=== PATIENT | female | born 1960 | race Caucasian/White ===

== ENCOUNTER 2017-02-11 14:48 | Emergency (ER) | payer OTHER, MEDICARE ==
--- NOTE | 2017-02-11 15:21 | ED Physician Documentation ---
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 PCP told her to come to ER. History: history of chronic pain:, back pain Onset: days ago Duration: continues in ED Recent Injury: No Where: home Severity: moderate Quality: burning, sharp, similar- prior back pain Associated Symptoms: denies: fever, chills Worsened By:: nothing Relieved By: nothing Further Comments: no - ROS CONST: no problems CVS/RESP: none EYES/ENT: none MS/SKIN/LYMPH: none Neuro/Psych: none - PAST HX Past History: back pain Surgeries/Procedures: none Allergies/Adverse Reactions: Allergies Allergy/AdvReac Type Severity Reaction Status Date / Time erythromycin base Allergy Verified 07/02/14 17:41 [Erythromycin Base] latex Allergy Verified 07/02/14 17:41 Sulfa (Sulfonamide Allergy Verified 07/02/14 17:41 Antibiotics) - SOCIAL HX Smoking History: non-smoker Alcohol Use: none Drug Use: none - FAMILY HX Family History: none - VITAL SIGNS Vital Signs: Vital Signs Temp Pulse Resp BP Pulse Ox 109/62 05/18/15 23:58 - REVIEWED ASSESSMENTS Nursing Assessment Reviewed: Yes Vitals Reviewed: Yes Progress - Results/Orders Results/Orders: I explained that I could give her a shot now, but would not prescribe new pain medications or rasie/increase her existing pain meds. She states her pain dr is taking a month off from work and she doesn't know where else to go. Her PCP sent her here. Low Back Pain/Injury - Physical Exam General Appearance: alert, mild distress EENT: ENT inspection normal, no signs of dehydration Neck: non-tender Resp/CVS: no resp. distress Abdomen: non-tender Back: vertebral point-tendernes, other (can't eval/examine. she is in reclining wheel dom and is obese, can't attempt to move her.) Neuro/Psych: oriented x3 Skin: normal color Extremities: non-tender Discharge Clincal Impression: Chronic low back pain Qualifiers: Back pain laterality: unspecified Sciatica presence: unspecified whether sciatica present Qualified Code(s): M54.5 - Low back pain; G89.29 - Other chronic pain Referrals: Ashlee Garrido MD [Primary Care Provider] - 2 Days Condition: Stable Disposition: 01 HOME, SELF-CARE Decision to Admit: NO Date of Decison to Admit: 02/11/17 Decision Time: 15:21
[2017-02-11] MEDS ORDERED: HYDROmorphone HCL/PF 2 MG/ML DISP.SYRIN IM ONE (15:22)
[2017-02-11 16:18] VITALS: BP 104/52
== END 2017-02-11 16:17 | disposition home or self-care (01) ==
LOC: ED 14:48
DX: M54.5 Low back pain (principal); G89.29 Other chronic pain
CPT/HCPCS: 96372; 99283; J1170

== ENCOUNTER 2017-03-06 08:02 | Outpatient (CLI) | payer OTHER, MEDICARE ==
[2017-03-06 09:15] LABS: eGFR (African) > 60; eGFR (Non-African) > 60
== END 2017-03-06 08:03 ==
LOC: LAB 08:02
PROVIDERS: ATTEND Family Medicine
DX: E11.9 Type 2 diabetes mellitus without complications (principal); E03.9 Hypothyroidism, unspecified
CPT/HCPCS: 36415; 80053; 80061; 83036; 84443

== ENCOUNTER 2017-04-22 19:26 | Emergency (ER) | payer OTHER, MEDICARE ==
[2017-04-22 20:01] LABS: BASOPHILS % 0.9 (0.0-1.5); EOSINOPHILS % 1.3 % (0.0-6.8); MEAN CORPUSCULAR HEMOGLOBIN 28.9 pg (28.0-34.0); MEAN CORPUSCULAR VOLUME 91.1 fl (80.0-100.0); MONOCYTES % 6.1 % (0.0-11.0); NEUTROPHILS # 3.6 # k/uL (1.4-7.7)
[2017-04-22 20:15] LABS: eGFR (African) > 60; eGFR (Non-African) > 60
[2017-04-22] MEDS ORDERED: ONDANSETRON HCL/PF 4 MG/ 2ML VIAL IVP ONE (20:44)
[2017-04-22] MEDS ORDERED: 0.9 % SODIUM CHLORIDE 1,000 ML IV ONE ×2 (21:00→21:03)
[2017-04-22] MEDS ORDERED: POTASSIUM CHLORIDE 20 MEQ TABLET.ER ONE ×2 (21:03→21:07)
--- NOTE | 2017-04-22 21:18 | ED Physician Documentation ---
General Adult - HISTORIAN Historian: patient - HPI Stated Complaint: N/V/D. left chest pain Chief Complaint: General Adult Onset: days ago (3) Further Comments: yes (56 year old female patient presents with complaints of nause, vomiting x 3 days after eating at [employer] Saturday night. Also reports left anterior chest wall discomfort 1 hour prior to arrival. Denies SOB, diaphoresis, or radiation of pain.) - ROS CONST: weakness. denies: fever, sweating, weight loss, chills EYES/ENT: none CVS/RESP: chest pain. denies: shortness of breath, cough GI/: vomiting, nausea, diarrhea. denies: abdominal pain, problems urinating, black stools MS/SKIN/LYMPH: neck pain (chronic), back pain (chronic). denies: calf pain, joint pain, leg swelling, swollen glands, leg pain, ankle swelling NEURO/PSYCH: denies: headache, fainting, dizziness, tingling, numbness, difficulty walking, difficulty with speech, anxiety, depression, other - PAST HX Past History: other (supra pubic catheter, hypothyroidism, chondrosarcoma of cspine) Other History: diabetes Type 2 Allergies/Adverse Reactions: Allergies Allergy/AdvReac Type Severity Reaction Status Date / Time erythromycin base Allergy Verified 07/02/14 17:41 [Erythromycin Base] latex Allergy Verified 07/02/14 17:41 Sulfa (Sulfonamide Allergy Verified 07/02/14 17:41 Antibiotics) Home Medications: Ambulatory Orders Medication Instructions Recorded Hydromorphone HCl [Dilaudid] 4 mg PO Q8 02/11/17 Tramadol HCl [Ultram] 50 mg PO PRN PRN 02/11/17 - SOCIAL HX Smoking History: non-smoker - FAMILY HX Family History: No - VITAL SIGNS Vital Signs: Vital Signs Temp Pulse Resp BP Pulse Ox 98.2 F 81 18 143/75 99 04/22/17 19:26 04/22/17 21:00 04/22/17 19:26 04/22/17 19:26 04/22/17 21:00 - REVIEWED ASSESSMENTS Nursing Assessment Reviewed: Yes Vitals Reviewed: Yes Progress - EKG/XRAY/CT EKG: rhythm (SR, artifact, rate 75, no acute changes) ED Results Lab/Radiology - Lab Results Lab Results: Lab Results 04/22/17 04/22/1704/22/17 19:57 19:57 19:57 WBC 5.40 K/ul K/ul (4.00-12.00) RBC 4.49 M/ul M/ul (3.90-5.20) Hgb 13.0 g/dL g/dL (12.0-16.0) Hct 40.9 % % (34.5-46.5) MCV 91.1 fl fl (80.0-100.0) MCH 28.9 pg pg (28.0-34.0) MCHC 31.7 g/dL g/dL (30.0-36.0) RDW 13.2 % % (11.3-14.3) Plt Count 203 K/mm3 K/mm3 (130-400) Neut % (Auto) 67.0 % % (39.0-79.0) Lymph % (Auto) 23.1 % % (16.0-50.0) [place] % (Auto) 6.1 % % (0.0-11.0) Eos % (Auto) 1.3 % % (0.0-6.8) Baso % (Auto) 0.9 (0.0-1.5) Neut # (Auto) 3.6 # k/uL # k/uL (1.4-7.7) Lymph # (Auto) 1.2 # k/uL # k/uL (0.6-4.0) [place] # (Auto) 0.3 # k/uL # k/uL (0.0-0.9) Eos # (Auto) 0.1 # k/uL # k/uL (0.0-0.6) Baso # (Auto) 0.0 # k/uL # k/uL (0.0-0.5) Reactive Lymphs % 1.6 % % (0.0-5.0) Reactive Lymphs # 0.1 # k/uL # k/uL (0.0-0.8) Sodium 141 mmol/L mmol/L (136-145) Potassium 3.3 mmol/L L mmol/L (3.5-5.0) Chloride 103 mmol/L mmol/L (98-110) Carbon Dioxide 34 mmol/L H mmol/L (20-32) BUN 9 mg/dL L mg/dL (10-26) Creatinine 0.8 mg/dL mg/dL (0.4-1.5) Est GFR ( Amer) > 60 (60 - ) Est GFR (Non-Af Amer) > 60 (60 - ) Glucose 167 mg/dL H mg/dL (70-99) Calcium 9.8 mg/dL mg/dL (8.5-10.5) Total Bilirubin 1.0 mg/dL mg/dL (0.2-1.2) AST 29 U/L U/L (0-41) ALT 53 U/L H U/L (0-45) Alkaline Phosphatase 99 U/L U/L (46-116) Troponin I < 0.03 ng/mL L ng/mL (0.03-0.06) Total Protein 7.9 g/dL g/dL (6.0-8.5) Albumin 4.8 g/dL g/dL (3.0-5.5) - Orders Orders: ED Orders Category Date Time Status Continuous EKG monitoring Q30M Care 04/22/17 19:39 Active Continuous Pulse Oximetry Q30M Care 04/22/17 19:39 Active CBC/PLATELET/DIFF Stat Lab 04/22/17 19:57 Completed CMP Stat Lab 04/22/17 19:57 Completed TROPONIN I (cTnI) Stat Lab 04/22/17 19:57 Completed UA W/MICRO IF INDICATED Stat Lab 04/22/17 19:39 Ordered 0.9 % Sodium Chloride [Normal Saline] 1,000 ml Med 04/22/17 21:03 Discontinued IV .STK-MED Ondansetron HCl/Pf [Zofran 4 mg/2 ml] Med 04/22/17 20:44 Discontinued 4 mg IVP NOW ONE Potassium Chloride [Klor-Con M20] Med 04/22/17 21:07 Discontinued 20 meq .ROUTE .STK-MED ONE Potassium Chloride [Klor-Con M20] Med 04/22/17 21:03 Discontinued 40 meq .ROUTE .STK-MED ONE EKG WITH COMPARISON Stat Ther 04/22/17 19:39 Ordered General Adult Physical Exam - PHYSICAL EXAM GENERAL APPEARANCE: mild distress EENT: eye inspection normal, YFN RESPIRATORY: no resp distress, chest non-tender, breath sounds normal CVS: reg rate & rhythm, heart sounds normal, equal pulses, no murmur, no gallop , PMI nml, no JVD, no friction rub, 24 ABDOMEN: soft, no organomegaly, normal bowel sounds, no abdominal bruit, no distension, other (supra pubic catheter) SKIN: normal color, warm/dry, NR, INT, PAL, DR EXTREMITIES: non-tender, normal range of motion, no evidence of injury, no edema , J, 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 NEURO: oriented X3, CN's nml as tested, motor nml, sensation nml, mood/affect nml Discharge Clincal Impression: Presence of suprapubic catheter UTI (urinary tract infection) Qualifiers: Urinary tract infection type: catheter-associated UTI Indwelling urinary catheter type: unspecified Encounter type: initial encounter Qualified Code(s): T83.511A - Infection and inflammatory reaction due to indwelling urethral catheter, initial encounter; N39.0 - Urinary tract infection, site not specified Referrals: Ashlee Garrido MD [Primary Care Provider] - 2 Days Additional Instructions: 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 Drink at least 64 oz of water daily. Avoid caffeinated beverages You may want to try Azo over the counter for urinary pain. Follow package directions Cranberry juice will help with symptoms. Tylenol every 4 hours as needed for pain/fever or ibuprofen every 6 hours as needed for pain and fever See your primary care provider for a repeat UA 48 hours after completing your antibiotic. Home Medications: Ambulatory Orders Hydromorphone HCl [Dilaudid] 4 mg PO Q8 02/11/17 Tramadol HCl [Ultram] 50 mg PO PRN PRN 02/11/17 Condition: Stable Disposition: 01 HOME, SELF-CARE Decision to Admit: NO Decision Time: 22:55
[2017-04-22] MEDS ORDERED: POTASSIUM CHLORIDE 20 MEQ TABLET.ER PO ONE (21:32)
[2017-04-22] MEDS ORDERED: cefTRIAXone SODIUM 1 GM in 0.9 % SODIUM CHLORIDE 50 ML IV ONE (22:40)
[2017-04-22 23:55] VITALS: BP 127/69
[2017-04-23 05:42] LABS: APPEARANCE,URINE CLOUDY (CLEAR); COLOR,URINE AMBER (YELLOW); OCCULT BLOOD,URINE 3+ (NEGATIVE); UROBILINOGEN URINE 0.2 Eu (0.2-1.0)
== END 2017-04-22 23:30 | disposition home or self-care (01) ==
LOC: ED 19:26
DX: N39.0 Urinary tract infection, site not specified (principal); T83.511A Infection and inflammatory reaction due to indwelling urethral catheter, initial encounter; X58.XXXA Exposure to other specified factors, initial encounter; Y93.9 Activity, unspecified; Y99.9 Unspecified external cause status
CPT/HCPCS: 80053; 81002; 84484; 85025; 87086; 93005; A9270; J0696; J2405; J7030; 87186; 96361; 96374; 96375; 99283; S1016

== ENCOUNTER 2017-04-26 09:02 | Emergency (ER) | payer OTHER, MEDICARE ==
[2017-04-26] MEDS ORDERED: NORMAL SALINE 500 ML IV.SOLN IV ONE ×2 (09:20→10:15)
[2017-04-26] MEDS ORDERED: cefTRIAXone SODIUM ADVANTAGE 1 GM in NORMAL SALINE ADD-VANTAGE 50 ML IV ONE (09:21)
[2017-04-26] MEDS ORDERED: ONDANSETRON HCL/PF 4 MG/ 2ML VIAL IVP ONE ×2 (09:26→12:15)
[2017-04-26] MEDS ORDERED: cefTRIAXone SODIUM 1 GM VIAL ONE (09:27)
[2017-04-26] MEDS ORDERED: 0.9 % SODIUM CHLORIDE 1,000 ML IV ONE (09:28)
[2017-04-26] MEDS ORDERED: 0.9 % SODIUM CHLORIDE 50 ML IV ONE (09:28)
--- NOTE | 2017-04-26 09:34 | ED Physician Documentation ---
General Adult - HISTORIAN Historian: patient - HPI Stated Complaint: Nausea & vomiting x 1 week Chief Complaint: General Adult Additional Information: Nausea and vomiting began a week ago. Seen here 04/22 and started Cipro for UTI, given Iv fluids. Has continued to have nausea and vomiting. Has only retained one dose Cipro. Indwelling Junior last changed 3 weeks ago and will be changed again in a week. Less than 100 cc urine in bag since yesterday. Low grade fevers. 99.2 in ER today. FSG 174. - ROS CONST: fever - PAST HX Past History: other (wheel chair bound, para, c spine cancer to have surgery) Allergies/Adverse Reactions: Allergies Allergy/AdvReac Type Severity Reaction Status Date / Time erythromycin base Allergy Verified 04/26/17 09:24 [Erythromycin Base] latex Allergy Verified 04/26/17 09:24 Sulfa (Sulfonamide Allergy Verified 04/26/17 09:24 Antibiotics) Home Medications: Ambulatory Orders Medication Instructions Recorded Hydromorphone HCl [Dilaudid] 4 mg PO Q8 02/11/17 Tramadol HCl [Ultram] 50 mg PO PRN PRN 02/11/17 Ciprofloxacin HCl [Cipro] 500 mg PO BID #20 tablet 04/22/17 Ondansetron HCl Rapdis [Zofran Odt] 4 mg PO Q6 PRN #30 tab 04/22/17 - SOCIAL HX Smoking History: non-smoker - FAMILY HX Family History: No - VITAL SIGNS Vital Signs: Vital Signs Temp Pulse Resp BP Pulse Ox 99.1 F 86 16 131/78 97 04/26/17 09:04 04/26/17 09:04 04/26/17 09:04 04/26/17 09:04 04/26/17 09:04 - REVIEWED ASSESSMENTS Nursing Assessment Reviewed: Yes Vitals Reviewed: Yes Progress - Progress Progress: 1216, megan rafter 2.5L NS (will finish 3rd liter). Resume Cipro. Home with zofran script. ED Results Lab/Radiology - Orders Orders: ED Orders Category Date Time Status CBC/PLATELET/DIFF Routine Lab 04/26/17 Ordered CMP Routine Lab 04/26/17 Ordered URINALYSIS Routine Lab 04/26/17 Ordered 0.9 % Sodium Chloride [Normal Saline] Med 04/26/17 09:20 Once 1,000 ml IV NOW ONE Ondansetron HCl/Pf [Zofran 4 mg/2 ml] Med 04/26/17 09:26 Once 4 mg IVP NOW ONE cefTRIAXone SODIUM ADVANTAGE [Rocephin Advantage] 1 gm Med 04/26/17 09:21 Ordered Normal Saline Add-[place] [Sodium Chloride] 50 ml IV NOW General Adult Physical Exam - PHYSICAL EXAM GENERAL APPEARANCE: moderate distress (subjectively cold, appears tired, ill) EENT: eye inspection normal, ENT inspection normal NECK: normal inspection RESPIRATORY: no resp distress, breath sounds normal CVS: reg rate & rhythm, heart sounds normal ABDOMEN: soft, normal bowel sounds RECTAL: deferred SKIN: warm/dry, pallor (slight) EXTREMITIES: no evidence of injury NEURO: cognition normal Discharge Clincal Impression: Dehydration Nausea and vomiting Qualifiers: Vomiting type: unspecified Vomiting Intractability: non-intractable Qualified Code(s): R11.2 - Nausea with vomiting, unspecified UTI (urinary tract infection) Qualifiers: Urinary tract infection type: acute cystitis Hematuria presence: with hematuria Qualified Code(s): N30.01 - Acute cystitis with hematuria Referrals: Ashlee Garrido MD [Primary Care Provider] - 2 Days Additional Instructions: Resume the ciprofloxacin. Follow up with your provider as needed. Home Medications: Ambulatory Orders Hydromorphone HCl [Dilaudid] 4 mg PO Q8 02/11/17 Tramadol HCl [Ultram] 50 mg PO PRN PRN 02/11/17 Ciprofloxacin HCl [Cipro] 500 mg PO BID #20 tablet 04/22/17 Ondansetron HCl Rapdis [Zofran Odt] 4 mg PO Q6 PRN #30 tab 04/22/17 Condition: Fair Disposition: 01 HOME, SELF-CARE Decision to Admit: NO Decision Time: 12:17
[2017-04-26] MEDS: 0.9 % SODIUM CHLORIDE 1,000 ML IV ONE ×3 (09:38→11:48)
[2017-04-26 09:45] LABS: BASOPHILS % 0.5 (0.0-1.5); EOSINOPHILS % 1.6 % (0.0-6.8); MEAN CORPUSCULAR HEMOGLOBIN 31.1 pg (28.0-34.0); MEAN CORPUSCULAR VOLUME 90.7 fl (80.0-100.0); MONOCYTES % 4.6 % (0.0-11.0); NEUTROPHILS # 2.9 # k/uL (1.4-7.7)
[2017-04-26 10:05] LABS: eGFR (African) > 60; eGFR (Non-African) > 60
[2017-04-26 11:09] LABS: APPEARANCE,URINE CLOUDY (CLEAR); COLOR,URINE YELLOW (YELLOW); OCCULT BLOOD,URINE 3+ (NEGATIVE); UROBILINOGEN URINE 0.2 Eu (0.2-1.0)
[2017-04-26 13:24] VITALS: BP 140/72
== END 2017-04-26 13:22 | disposition home or self-care (01) ==
LOC: ED 09:02
DX: E86.0 Dehydration (principal); R11.2 Nausea with vomiting, unspecified
CPT/HCPCS: 80053; 81002; 85025; 87086; J0696; J2405; J7030; 96361; 96365; 96375; 99283; S1016

== ENCOUNTER 2017-06-24 10:08 | Day surgery (SDC) | payer OTHER, MEDICARE ==
[~2017-06-24 10:08] MED LIST: LACTATED RINGERS 1,000 ML IV.SOLN IV ONE; PROPOFOL 500 MG/50 ML VIAL IV ONE; SALINE FLUSH 10 ML DISP.SYRIN IVF ONE
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
== END 2017-06-24 10:10 ==
LOC: OPSURG 10:08
PROVIDERS: ATTEND Internal Medicine Gastroenterology
DX: K29.40 Chronic atrophic gastritis without bleeding (principal); K31.84 Gastroparesis
CPT/HCPCS: 88305; J2704; J7120; 43239; S1016

== ENCOUNTER 2017-07-11 17:21 | Emergency (ER) | payer OTHER, MEDICARE ==
--- NOTE | 2017-07-11 17:55 | ED Physician Documentation ---
General Adult - HISTORIAN Historian: patient - HPI Chief Complaint: General Adult Onset: days ago (2) Further Comments: yes (56 year old paraplegic patient presents requesting new catheter bag, states she ran over her current bag and it has been leaking for 2 days. Denies any other complaints or pain.) - ROS CONST: no problems EYES/ENT: none CVS/RESP: none GI/: none MS/SKIN/LYMPH: none NEURO/PSYCH: denies: headache - PAST HX Past History: other (Paraplegic) Allergies/Adverse Reactions: Allergies Allergy/AdvReac Type Severity Reaction Status Date / Time erythromycin base Allergy Verified 07/11/17 17:48 [Erythromycin Base] latex Allergy Verified 07/11/17 17:48 Sulfa (Sulfonamide Allergy Verified 07/11/17 17:48 Antibiotics) Home Medications: Ambulatory Orders Medication Instructions Recorded Hydromorphone HCl [Dilaudid] 4 mg PO Q8 02/11/17 Tramadol HCl [Ultram] 50 mg PO PRN PRN 02/11/17 - SOCIAL HX Smoking History: non-smoker - FAMILY HX Family History: No - VITAL SIGNS Vital Signs: Vital Signs Temp Pulse Resp BP Pulse Ox 140/72 04/26/17 13:22 - REVIEWED ASSESSMENTS Nursing Assessment Reviewed: Yes Vitals Reviewed: Yes Progress - Progress Progress: bag replaced by nursing. General Adult Physical Exam - PHYSICAL EXAM GENERAL APPEARANCE: [id number] N EENT: eye inspection normal RESPIRATORY: no resp distress CVS: reg rate & rhythm ABDOMEN: soft, normal bowel sounds, other (indwelling supra pubic catheter) SKIN: warm/dry EXTREMITIES: non-tender, other (wheelchair bound) NEURO: oriented X3, mood/affect nml Discharge Clincal Impression: Malfunction of Junior catheter Qualifiers: Encounter type: initial encounter Qualified Code(s): T83.011A - Breakdown ( mechanical) of indwelling urethral catheter, initial encounter Condition: Stable Disposition: 01 HOME, SELF-CARE Decision to Admit: NO Decision Time: 17:55
[2017-07-11 17:56] VITALS: BP 126/68
== END 2017-07-11 18:00 | disposition home or self-care (01) ==
LOC: ED 17:21
DX: T83.011A Breakdown (mechanical) of indwelling urethral catheter, initial encounter (principal); X58.XXXA Exposure to other specified factors, initial encounter; Y93.9 Activity, unspecified; Y99.9 Unspecified external cause status
CPT/HCPCS: 99283

== ENCOUNTER 2017-08-05 14:20 | Emergency (ER) | payer OTHER, MEDICARE ==
[2017-08-05 14:43] VITALS: BP 98/80
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
[2017-08-05 15:27] LABS: APPEARANCE,URINE CLEAR (CLEAR); COLOR,URINE YELLOW (YELLOW); OCCULT BLOOD,URINE 2+ (NEGATIVE); PH URINE 5.5 (5.0 - 8.0); UROBILINOGEN URINE 0.2 Eu (0.2-1.0)
== END 2017-08-05 15:40 | disposition home or self-care (01) ==
LOC: ED 14:20
DX: Z46.6 Encounter for fitting and adjustment of urinary device (principal)
CPT/HCPCS: 51702; 81002; 87086; 99283

== ENCOUNTER 2017-08-16 13:46 | Emergency (ER) | payer OTHER, MEDICARE ==
--- NOTE | 2017-08-16 14:01 | ED Physician Documentation ---
General Adult - HISTORIAN Historian: patient - HPI Stated Complaint: nausea vomiting diarrhea Chief Complaint: Nausea,Vomiting,Diarrhea Onset: days ago (1) Timing: still present Severity: moderate Further Comments: yes (She states that she has been exposed to GI illness with kids. No fever. She states she has vomited twice today) Last known Well Code/Unknown Code: Unknown - ROS CONST: denies: fever, recent illness EYES/ENT: denies: sore throat CVS/RESP: denies: shortness of breath GI/: vomiting, nausea. denies: abdominal pain, diarrhea MS/SKIN/LYMPH: denies: rash NEURO/PSYCH: denies: headache, fainting, dizziness - PAST HX Past History: other (Spinal tumor (C2)- maligant, DM, ) Other History: other (hypothryoidsim, parapalegic ) Surgeries/Procedures: other Immunizations: referred to PCP Allergies/Adverse Reactions: Allergies Allergy/AdvReac Type Severity Reaction Status Date / Time erythromycin base Allergy Verified 08/16/17 14:05 [Erythromycin Base] latex Allergy Verified 08/16/17 14:05 Sulfa (Sulfonamide Allergy Verified 08/16/17 14:05 Antibiotics) Home Medications: Ambulatory Orders Medication Instructions Recorded Hydromorphone HCl [Dilaudid] 4 mg PO Q8 02/11/17 Tramadol HCl [Ultram] 50 mg PO PRN PRN 02/11/17 Nitrofurantoin Monohyd/M-Cryst 100 mg PO BID #20 capsule 08/16/17 [Macrobid] Ondansetron HCl/Pf [Zofran 4 mg/2 4 mg PO Q8 PRN #20 vial 08/16/17 ml] - SOCIAL HX Smoking History: non-smoker Alcohol Use: none Drug Use: none - FAMILY HX Family History: No - VITAL SIGNS Vital Signs: Vital Signs Temp Pulse Resp BP Pulse Ox 98/80 08/05/17 15:41 - REVIEWED ASSESSMENTS Nursing Assessment Reviewed: Yes Vitals Reviewed: Yes Progress - Progress Progress: States she has had some improvement in symptoms Discussed UTI Increase fluids Take Zofran as needed for nausea Take Macrobid for UTI General Adult Physical Exam - PHYSICAL EXAM GENERAL APPEARANCE: no distress EENT: eye inspection normal NECK: normal inspection RESPIRATORY: no resp distress, chest non-tender, breath sounds normal CVS: reg rate & rhythm, heart sounds normal, equal pulses, no murmur ABDOMEN: soft, no distension. No: tenderness SKIN: warm/dry, normal color EXTREMITIES: other (She is in wheelchair due to parapalegic ) NEURO: oriented X3, CN's nml as tested Discharge Clincal Impression: UTI (urinary tract infection) Qualifiers: Urinary tract infection type: site unspecified Hematuria presence: without hematuria Qualified Code(s): N39.0 - Urinary tract infection, site not specified Prescriptions: Nitrofurantoin Monohyd/M-Cryst [Macrobid] 100 mg PO BID #20 capsule Ondansetron HCl/Pf [Zofran 4 mg/2 ml] 4 mg PO Q8 PRN #20 vial PRN Reason: Nausea / Vomiting Referrals: Ashlee Garrido MD [Primary Care Provider] - 2 Days Condition: Stable Disposition: 01 HOME, SELF-CARE Decision to Admit: NO Date of Decison to Admit: 08/16/17 Decision Time: 15:14
[2017-08-16] MEDS: 0.9 % SODIUM CHLORIDE 1,000 ML IV ONE (14:20)
[2017-08-16] MEDS: ONDANSETRON HCL/PF 4 MG/ 2ML VIAL IVP ONE (14:26)
[2017-08-16 14:39] LABS: BASOPHILS % 0.6 (0.0-1.5); EOSINOPHILS % 0.6 % (0.0-6.8); MEAN CORPUSCULAR HEMOGLOBIN 30.1 pg (28.0-34.0); MEAN CORPUSCULAR VOLUME 94.3 fl (80.0-100.0); MONOCYTES % 4.7 % (0.0-11.0); NEUTROPHILS # 2.4 # k/uL (1.4-7.7)
[2017-08-16 14:43] LABS: APPEARANCE,URINE Clear (CLEAR); COLOR,URINE Yellow (YELLOW); OCCULT BLOOD,URINE 2+ (NEGATIVE); PH URINE 5.5 (5.0 - 8.0)
[2017-08-16 15:00] LABS: eGFR (African) > 60; eGFR (Non-African) > 60
[2017-08-16 15:38] VITALS: BP 146/89
== END 2017-08-16 15:30 | disposition home or self-care (01) ==
LOC: ED 13:46
DX: N39.0 Urinary tract infection, site not specified (principal)
CPT/HCPCS: 80053; 81002; 85025; 87086; 87186; J2405; J7030; 96361; 96374; 99283; S1016

== ENCOUNTER 2017-09-03 14:32 | Emergency (ER) | payer OTHER, MEDICARE ==
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
[2017-09-03 15:46] VITALS: BP 129/63
== END 2017-09-03 17:15 ==
LOC: ED 14:32
DX: T83.038A Leakage of other urinary catheter, initial encounter (principal); X58.XXXA Exposure to other specified factors, initial encounter; Y93.9 Activity, unspecified; Y99.9 Unspecified external cause status
CPT/HCPCS: 51702; 99283

== ENCOUNTER 2017-09-12 19:38 | Emergency (ER) | payer OTHER, MEDICARE ==
[2017-09-12] MEDS ORDERED: fentaNYL CITRATE/PF 100 MCG/ 2ML AMP IVP ONE (20:21)
[2017-09-12] MEDS ORDERED: LORazepam 2 MG/ML VIAL IVP ONE (20:22)
[2017-09-12] MEDS ORDERED: PROPARACAINE HCL 0.5% OPTH OP ONE (20:40)
--- NOTE | 2017-09-12 20:41 | ED Physician Documentation ---
Eye Problem - HISTORIAN Historian: patient, child - HPI Stated Complaint: EYE PAIN Chief Complaint: Eye Trauma Additional Information: eye pain Onset: hours (prog worse) Associated symptoms: pain, burining, sensitivity to light (eyes helt tightly closed unable to visualize until after meds incl properacaine) Location: left eye (onset after laser tx at [facility] today) Apparent Injury: no Context: denies: foreign body, direct trauma - ROS CONST: no problems. denies: recent illness, fever, chills MS/SKIN/LYMPH: denies: weakness, numbness, neck pain, back pain CVS/RESP: none. denies: chest pain, shortness of breath EYES/ENT: other (held tightly shut) GI/: nausea. 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 ) Allergies/Adverse Reactions: Allergies Allergy/AdvReac Type Severity Reaction Status Date / Time erythromycin base Allergy Verified 09/12/17 20:06 [Erythromycin Base] latex Allergy Verified 09/12/17 20:06 Sulfa (Sulfonamide Allergy Verified 09/12/17 20:06 Antibiotics) Home Medications: Ambulatory Orders Medication Instructions Recorded Hydromorphone HCl [Dilaudid] 4 mg PO Q8 02/11/17 Tramadol HCl [Ultram] 50 mg PO PRN PRN 02/11/17 Nitrofurantoin Monohyd/M-Cryst 100 mg PO BID #20 capsule 08/16/17 [Macrobid] Ondansetron HCl/Pf [Zofran 4 mg/2 4 mg PO Q8 PRN #20 vial 08/16/17 ml] - SOCIAL HX Smoking History: non-smoker Alcohol Use: none Drug Use: none - FAMILY HX Family History: no significant history - VITAL SIGNS Vital Signs: Vital Signs Temp Pulse Resp BP Pulse Ox 98.4 F 79 20 164/70 99 09/12/17 19:38 09/12/17 19:38 09/12/17 19:38 09/12/17 19:38 09/12/17 19:38 ED Results Lab/Radiology - Orders Orders: ED Orders Category Date Time Status LORazepam [Ativan] Med 09/12/17 20:22 Once 1 mg IVP NOW ONE fentaNYL CITRATE/PF [Duragesic] Med 09/12/17 20:21 Once 50 mcg IVP NOW ONE Eye Problem Physical Exam - Physical Exam General Appearance: no acute distress, moderate distress Examined with Slit Lamp: No Visual Acuity: see nursing assessment Eyelids: nml inspection EOM: intact Pupils: equal Anterior Chambers: No: hyphema (R), hyphema (L) Head/ENT: nml inspection Skin: nml color, warm, skin intact. No: ecchymosis, abrasions, laceration, cyanosis, diaphoresis Neck/Back: nml inspection Respiratory: no resp distress, chest non-tender, breath sounds normal CVS: reg rate & rhythm, heart sounds normal Neuro/Psych: oriented x3, neuro intact, depressed mood/affect (pt significaltly improved after meds miguel properacaine) Discharge Clincal Impression: eye pain spasm photophobia after lasertx, tx at [facility] Referrals: Ashlee Garrido MD [Primary Care Provider] - 2 Days Comments: spoke w/ DR BASS per phone -he will see her tonite in eye clinic Condition: Good Disposition: 02 XFER SHT-TRM HOSP Decision to Admit: [id number] Decision Time: 21:18
[2017-09-12 21:12] VITALS: BP 95/69
== END 2017-09-12 21:12 | disposition short-term general hospital (02) ==
LOC: ED 19:38
DX: H53.142 Visual discomfort, left eye (principal); H57.12 Ocular pain, left eye
CPT/HCPCS: 96374; 96375; 99282; 99283; J2060; J3010; A9270-GY; S1016

== ENCOUNTER → 2018-04-17 | Outpatient (CLI) | payer OTHER, MEDICARE | LOC: LABRHC 14:08 | PROVIDERS: ATTEND Physician Assistant | DX: R10.30 Lower abdominal pain, unspecified (principal) | CPT/HCPCS: 87086 ==

== ENCOUNTER 2018-08-11 14:36 | Emergency (ER) | payer OTHER, MEDICARE ==
[2018-08-11 15:37] VITALS: BP 127/70
[2018-08-11] MEDS ORDERED: LIDOCAINE HCL 1% PF 50MG/5ML AMP (IM/SUTURE/PAIN CLINIC) IJ ONE (15:57)
[2018-08-11] MEDS ORDERED: cefTRIAXone SODIUM 1 GM INJ ONE (16:00)
[2018-08-11 16:43] LABS: APPEARANCE,URINE CLOUDY (CLEAR); COLOR,URINE YELLOW (YELLOW); OCCULT BLOOD,URINE 3+ (NEGATIVE); UROBILINOGEN URINE 0.2 Eu (0.2-1.0)
--- NOTE | 2018-10-23 15:53 | ED Physician Documentation ---
General Adult - HISTORIAN Historian: patient - HPI Stated Complaint: possible UTI Chief Complaint: General Adult Further Comments: yes (complaint of green drainage from around her suprapubic catheter, bilat flank pain, mid abd pain, low grade fever that began 4 days ago. Pt states her catheter hasn't been changed for 3 months d/t her being in and out of the hospital. She states she had right shoulder reversal replacement at [facility] 3 weeks ago and was discharged from there on 07/31/2018. She called her PCP, unable to be seen until Sep 22.) - ROS CONST: recent illness (shoulder surgery) EYES/ENT: none CVS/RESP: none GI/: none MS/SKIN/LYMPH: none NEURO/PSYCH: denies: headache - PAST HX Past History: other (suprapubic catheter, wheelchair bound, depression) Other History: diabetes Type 2 Allergies/Adverse Reactions: Allergies Allergy/AdvReac Type Severity Reaction Status Date / Time erythromycin base Allergy Verified 09/15/18 16:26 [Erythromycin Base] iohexol Allergy Verified 09/15/18 16:26 latex Allergy Verified 09/15/18 16:26 Sulfa (Sulfonamide Allergy Verified 09/15/18 16:26 Antibiotics) Home Medications: Ambulatory Orders Medication Instructions Recorded Celecoxib [Celebrex] 100 mg PO BID 08/11/18 DULoxetine HCL [Cymbalta] 60 mg PO HS 08/11/18 Mecobalamin [B-12] 1,000 mcg SL D 08/11/18 Ondansetron HCl/Pf [Zofran 4 mg/2 8 mg PO Q8 PRN 08/11/18 ml] Pioglitazone HCl [Actos] 30 mg PO 0730 08/11/18 Prazosin HCl [Minipress] 2 mg PO D 08/11/18 Pregabalin [Lyrica] 300 mg PO BID 08/11/18 Trazodone HCl [Desyrel] 100 mg PO HS 08/11/18 - SOCIAL HX Smoking History: non-smoker - FAMILY HX Family History: No - VITAL SIGNS Vital Signs: Vital Signs Temp Pulse Resp BP Pulse Ox 97.0 F L 99 H 16 127/70 97 08/11/18 16:14 08/11/18 16:14 08/11/18 16:14 08/11/18 16:14 08/11/18 16:14 - REVIEWED ASSESSMENTS Nursing Assessment Reviewed: Yes Vitals Reviewed: Yes Progress - Progress Progress: Supra pubic catheter changed while in ER. ED Results Lab/Radiology - Lab Results Lab Results: Lab Results 08/11/18 15:35 Urine Color Yellow (YELLOW) Urine Appearance Cloudy H (CLEAR) Urine pH 6.0 (5.0 - 8.0) Ur Specific [place] 1.025 (1.010-1.030) Urine Protein 2+ mg/dL H mg/dL (NEGATIVE) Urine Ketones Negative mg/dL mg/dL (NEGATIVE) Urine Occult Blood 3+ H (NEGATIVE) Urine Nitrite Negative (NEGATIVE) Urine Bilirubin Negative (NEGATIVE) Urine Urobilinogen 0.2 Eu Eu (0.2-1.0) Ur Leukocyte Esterase 1+ H (NEGATIVE) Urine Glucose Negative mg/dL mg/dL (NEGATIVE) - Orders Orders: ED Orders Category Date Time Status Further Nursing Orders 1T Care 08/11/18 16:18 Active UA MACRO DIP ONLY Stat Lab 08/11/18 15:35 Completed URINE CULTURE Stat Lab 08/11/18 15:35 Completed Lidocaine 1% 5ml(IM or SUTURE) [Xylocaine] Med 08/11/18 15:57 Discontinued 50 mg IJ NOW ONE cefTRIAXone SODIUM [Rocephin] Med 08/11/18 16:00 Discontinued 1 gm .ROUTE .STK-MED ONE cefTRIAXone SODIUM [Rocephin] Med 08/11/18 15:57 Discontinued 1,000 mg IM NOW ONE General Adult Physical Exam - PHYSICAL EXAM GENERAL APPEARANCE: mild distress EENT: eye inspection normal, ENT inspection normal, pharynx normal, no signs of dehydration, YFN, no nystagmus, TM's nml RESPIRATORY: no resp distress, chest non-tender, breath sounds normal CVS: reg rate & rhythm, heart sounds normal, equal pulses, no murmur, no gallop, PMI nml, no JVD, no friction rub, 24 ABDOMEN: soft, no organomegaly, normal bowel sounds, no abdominal bruit, no distension, other (suprapubic catheter with cloudy dark yellow urine. 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
== END 2018-08-11 16:14 | disposition home or self-care (01) ==
LOC: ED 14:36
DX: N39.0 Urinary tract infection, site not specified (principal); B96.5 Pseudomonas (aeruginosa) (mallei) (pseudomallei) as the cause of diseases classified elsewhere; B95.2 Enterococcus as the cause of diseases classified elsewhere; Z96.0 Presence of urogenital implants
CPT/HCPCS: 51702; 81002; 87086; 87186; 96372; 99282; 99284; J0696

== ENCOUNTER 2018-09-15 15:11 | Emergency (ER) | payer OTHER, MEDICARE ==
--- NOTE | 2018-09-15 15:35 | ED Physician Documentation ---
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 pt presents to the ED via POV c/o bladder infection and bladder spasms with pain 03/18. pt has indwelling suprapubic catheter that was changed approx 1 month ago. pt reports low grade temp. denies other symptoms or complaints. pt denies current chest pain, dyspnea, chills, cough, dizziness, syncope, hematuria, melena, hematochezia. - ROS CONST: weakness EYES/ENT: none. denies: problems with vision, sore throat, nasal drainage, nasal congestion CVS/RESP: denies: chest pain, shortness of breath, cough GI/: abdominal pain (suprapubic), problems urinating. denies: vomiting, nausea, diarrhea MS/SKIN/LYMPH: none. denies: calf pain, neck pain, joint pain, leg swelling, rash, swollen glands, leg pain, back pain, ankle swelling, other NEURO/PSYCH: denies: headache, fainting, dizziness, tingling, numbness, difficulty walking, difficulty with speech, anxiety, depression - PAST HX Past History: other (DM2, C-spine cancer, traumatic spinal cord injury. ) Surgeries/Procedures: hysterectomy Allergies/Adverse Reactions: Allergies Allergy/AdvReac Type Severity Reaction Status Date / Time erythromycin base Allergy Verified 09/15/18 16:26 [Erythromycin Base] iohexol Allergy Verified 09/15/18 16:26 latex Allergy Verified 09/15/18 16:26 Sulfa (Sulfonamide Allergy Verified 09/15/18 16:26 Antibiotics) Home Medications: Ambulatory Orders Medication Instructions Recorded Celecoxib [Celebrex] 100 mg PO BID 08/11/18 DULoxetine HCL [Cymbalta] 60 mg PO HS 08/11/18 Mecobalamin [B-12] 1,000 mcg SL D 08/11/18 Ondansetron HCl/Pf [Zofran 4 mg/2 8 mg PO Q8 PRN 08/11/18 ml] Pioglitazone HCl [Actos] 30 mg PO 0730 08/11/18 Prazosin HCl [Minipress] 2 mg PO D 08/11/18 Pregabalin [Lyrica] 300 mg PO BID 08/11/18 Trazodone HCl [Desyrel] 100 mg PO HS 08/11/18 - SOCIAL HX Smoking History: non-smoker Alcohol Use: none Drug Use: none - FAMILY HX Family History: No - VITAL SIGNS Vital Signs: Vital Signs Temp Pulse Resp BP Pulse Ox 127/70 08/11/18 16:14 - REVIEWED ASSESSMENTS Nursing Assessment Reviewed: Yes Vitals Reviewed: Yes ED Results Lab/Radiology - Orders Orders: ED Orders Category Date Time Status Urinary catheterization 1T Care 09/15/18 15:30 Ordered CBC/PLATELET/DIFF Stat Lab 09/15/18 15:28 Ordered CMP [CMP] Stat Lab 09/15/18 15:28 Ordered UA W/MICRO IF INDICATED Stat Lab 09/15/18 15:29 Uncollected URINE CULTURE Stat Lab 09/15/18 Uncollected General Adult Physical Exam - PHYSICAL EXAM GENERAL APPEARANCE: no distress EENT: eye inspection normal, ENT inspection normal, pharynx normal, no signs of dehydration, YFN, no nystagmus, TM's nml NECK: other (no vertebral tenderness ) RESPIRATORY: no resp distress, chest non-tender, breath sounds normal. No: wheezes, rales, rhonchi CVS: reg rate & rhythm, heart sounds normal, equal pulses, no murmur, no gallop, PMI nml, no JVD, no friction rub, 24 ABDOMEN: soft, no organomegaly, normal bowel sounds, no abdominal bruit, no distension, tenderness (mild suprapubic tenderness. 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 suprapubic catheter. no s/s of infection at catheter site. ) Discharge Clincal Impression: UTI (urinary tract infection) Qualifiers: Urinary tract infection type: catheter-associated UTI Indwelling urinary catheter type: unspecified Encounter type: initial encounter Qualified Code(s): T83.511A - Infection and inflammatory reaction due to indwelling urethral catheter, initial encounter; N39.0 - Urinary tract infection, site not specified Referrals: Wilbert Plascencia MD [Primary Care Provider] - 2 Days Additional Instructions: Omnicef 300 mg twice a day for 10 days. We sent a urine culture out. please call the hospital to check status if you have not heard anything in 4 days. follow up with primary care after antibiotics completed for urine recheck. Follow up with urology in 30 days to have catheter changed. you should have changed every 30 days. seek medical care immediately if difficult to wake or weakness, difficulty breathing, feeling faint or fainting, increased rash, chest pain, shortness of breath, or fever not controlled by tylenol/motrin or any concern. PLEASE UNDERSTAND THAT THIS IS AN EMERGENCY EVALUATION FOR YOUR COMPLAINT AND BY NATURE IS LIMITED AND NOT A SUBSTITUTE FOR ONGOING MEDICAL CARE. EVEN THOUGH TEST RESULTS AND TREATMENT PLAN WERE EXPLAINED THERE MAY BE A NEED FOR ADDITIONAL TESTING TO FULLY DETERMINE THE EXTENT OF YOUR ILLNESS/INJURY/OR CONCERN SO YOU SHOULD CONTACT AND OR ESTABLISH WITH A PRIMARY CARE PROVIDER (OR REFERRAL DOCTOR IF APPLICABLE) FOR AN APPOINTMENT SOON POSSIBLE Condition: Good Disposition: 01 HOME, SELF-CARE Decision to Admit: NO Date of Decison to Admit: 09/15/18 Decision Time: 17:19
[2018-09-15 16:15] LABS: MEAN CORPUSCULAR HEMOGLOBIN 28.1 pg (28.0-34.0)
[2018-09-15 16:16] LABS: BASOPHILS % 0.2 (0.0-1.5); EOSINOPHILS % 2.8 % (0.0-6.8); MONOCYTES % 7.7 % (0.0-11.0); NEUTROPHILS # 1.6 # k/uL (1.4-7.7)
[2018-09-15 16:22] LABS: eGFR (Non-African) > 60
[2018-09-15] MEDS ORDERED: LIDOCAINE HCL 2% PF 100MG/5ML VIAL IJ STA (16:51)
[2018-09-15] MEDS ORDERED: cefTRIAXone SODIUM 1 GM INJ ONE (17:02)
[2018-09-15 17:03] LABS: APPEARANCE,URINE CLOUDY (CLEAR); COLOR,URINE YELLOW (YELLOW); OCCULT BLOOD,URINE 3+ (NEGATIVE); PH URINE 8.5 (5.0 - 8.0); UROBILINOGEN URINE 0.2 Eu (0.2-1.0)
[2018-09-15 17:33] VITALS: BP 147/86
== END 2018-09-15 17:35 | disposition home or self-care (01) ==
LOC: ED 15:11
DX: N39.0 Urinary tract infection, site not specified (principal); T83.511A Infection and inflammatory reaction due to indwelling urethral catheter, initial encounter
CPT/HCPCS: 36415; 51702; 80053; 81002; 85025; 87040; 87086; 96372; 99283; 99284; J0696; J2001

== ENCOUNTER 2019-02-24 19:23 | Observation (INO) | payer MEDICARE, OTHER ==
[2019-02-24] MEDS ORDERED: NORMAL SALINE 1,000 ML IV.SOLN IV ONE ×2 (19:48→21:58)
[2019-02-24] MEDS ORDERED: IPRATROPIUM/ALBUTEROL SULFATE 3 ML AMPUL.NEB NEB ONE (19:48)
[2019-02-24] MEDS ORDERED: ONDANSETRON HCL/PF 4 MG/ 2ML VIAL ONE (19:48)
[2019-02-24] MEDS ORDERED: INSULIN REGULAR, HUMAN 100 UNIT/ML 10ML VIAL ONE (19:48)
[2019-02-24] MEDS ORDERED: NITROFURANTOIN MONO/MACRO 100 MG CAPSULE PO ONE (19:48)
[2019-02-24] MEDS ORDERED: PIOGLITAZONE HCL 30 MG TABLET PO ONE (22:28)
[2019-02-24] MEDS ORDERED: PRAZOSIN HCL 1 MG CAPSULE PO ONE ×2 (22:28)
[2019-02-25] MEDS ORDERED: NORMAL SALINE 1,000 ML IV.SOLN IV ONE (06:01)
[2019-02-25] MEDS ORDERED: AMOXICILLIN/POT 875/125 1 EACH PO ONE (07:14)
[2019-02-25] MEDS ORDERED: IPRATROPIUM/ALBUTEROL SULFATE 3 ML AMPUL.NEB NEB ONE (10:31)
[2019-02-25] MEDS ORDERED: ACETAMINOPHEN 325 MG TABLET ONE ×2 (10:32)
[2019-03-04 09:01] LABS: APPEARANCE,URINE CLEAR (CLEAR); COLOR,URINE YELLOW (YELLOW); OCCULT BLOOD,URINE NEGATIVE (NEGATIVE); UROBILINOGEN URINE 0.2 Eu (0.2-1.0)
[2019-03-04 09:19] LABS: BASOPHILS % 0.1 % (0.0-1.5); eGFR (Non-African) > 60
[2019-03-09 14:37] LABS: eGFR (Non-African) > 60
[2019-03-09 14:38] LABS: BASOPHILS % 0.4 % (0.0-1.5)
--- NOTE | 2019-04-23 09:27 | Diagnostic Imaging Report ---
SABRINA GALAN [facility] [address] [facility] [address] [place], [place]. [address] Report Submission Date: Feb 24, 2019 9:18:04 PM CDT Patient Study Name: JOSE A ODONNELL Date: Feb 24, 2019 8:12:55 PM CDT Modality Type: DX Gender: F Description: CHEST 2VIEW : 60 Institution: [facility] Physician: SABRINA GALAN 2 views of the chest. Clinical history: Cough Findings: The heart size is normal. The pulmonary vasculature is normal. No pleural effusion, pneumothorax or alveolar consolidation. Impression: No acute disease in the chest Electronically signed on Feb 24, 2019 9:18:04 PM CDT by: Florencio BECKHAM
== END 2019-02-25 14:00 | disposition home or self-care (01) ==
LOC: ED 19:23 → UNDOADMOB 21:23 → SOUTH 21:23 → UNDODISOB 02-25 14:00
PROVIDERS: ADMIT Family Medicine; ATTEND Family Medicine
DX: R05 Cough (principal); R50.9 Fever, unspecified; R11.2 Nausea with vomiting, unspecified
CPT/HCPCS: 36415; 36600; 71020; 80048; 80053; 81002; 82803; 83605; 85025; 85610; 85730; 87086; 99234; G0378; J1815; J2405; J7030; 94640; 99282; 99284; S1016